=== PATIENT | male | born 1960 | race Caucasian/White ===

== ENCOUNTER → 2016-12-03 | Outpatient (CLI) | payer OTHER ==
--- NOTE | 2016-12-03 17:29 | PCVCIMAG ---
APPROVED REPORT Study performed: 12/03/2016 14:02:43 EXAM: Comprehensive 2D, Doppler, and color-flow Echocardiogram Patient Location: Echo lab Status: routine Other Information Study Quality: Fair Indications Aortic Valve Disease Murmur Cardiomegaly Aortic insuffeciency, Aortic arch aneurysm 2D Dimensions LVEF(%): 55.00 (>50%) IVSd: 11.00 (7-11mm)LVOT Diam: 32.71 (18-24mm) LVDd: 73.94 mm PWd: 11.30 (7-11mm)Ascending Ao: 38.72 (22-36mm) LVDs: 46.20 (25-40mm) Left Atrium: 30.74 (27-40mm) Aortic Root: 28.03 mm Aortic Valve AoV Peak Ammon.: 2.17 m/s AO Peak Gr.: 22.32 mmHgLVOT Max P.47 mmHg AO Mean Gr.: 9.79 mmHgLVOT Mean P.60 mmHg AO V2 Mean: 1.46 m/sLVOT Max V: 0.89 m/s AO V2 VTI: 44.91 cmLVOT Mean V: 0.60 m/s ZELALEM (VTI): 3.97 [id number] V1 VTI: 21.25 cm ZELALEM Vmax: 3.44 cm2 AI Vmax: 3.47 m/sSV (LVOT): 178.44 mL AI [place]: 1.66 m/s2 AI PHT: 608.12 ms Mitral Valve E/A Ratio: 0.9 MV Decel. Time: 306.52 ms MV E Max Ammon.: 0.67 m/s MV A Ammon.: 0.74 m/s IVRT: 134.95 ms Pulmonary Valve PV Peak Ammon.: 0.85 m/sPV Peak Gr.: 3.09 mmHg Pulmonary Vein P Vein S: 0.43 m/sP Vein A: 0.28 m/s P Vein D: 0.48 m/sP Vein A Dur.: 114.2 msec P Vein S/D Ratio: 0.90 Tricuspid Valve TV Vmax: 0.58 m/s Left Ventricle Left ventricle is severely dilated. There is normal LV segmental wall motion. Mild concentric left ventricular hypertrophy. The overall left ventricular systolic function appears normal. LVEF is 55%. The left ventricular diastolic function is normal. Right Ventricle The right ventricle is normal size. The right ventricular systolic function is normal. Atria The left atrium size is normal. The right atrium size is normal. Aortic Valve Aortic valve is possibly bicuspid. Aortic valve leaflets are mildly thickened with mildly reduced excursion. Moderate to severe aortic regurgitation Highest mean aortic valve gradient is 10mmHg. No hemodynamically significant valvular aortic stenosis. Mitral Valve The mitral valve is normal in structure. There is no mitral valve regurgitation noted. No evidence of mitral valve stenosis. Tricuspid Valve The tricuspid valve is normal in structure. There is no tricuspid valve regurgitation noted. Pulmonic Valve The pulmonary valve is normal in structure. Trace pulmonic regurgitation. Great Vessels LVOT is mildly dilated with a normal AO root at 2.8cm. The ascending aorta is normal in size. There is reverse flow seen in the ascending aorta indicative of moderate to severe aortic insuffeciency. IVC is normal in size and collapses with >50% inspiration The pulmonary artery is normal. Pericardium There is no pericardial effusion. There is no pleural effusion. <Conclusion> Left ventricle is severely dilated. Mild concentric left ventricular hypertrophy. LVEF is 55%. The left ventricular diastolic function is normal. The left atrium size is normal. The right atrium size is normal. Highest mean aortic valve gradient is 10mmHg. No hemodynamically significant valvular aortic stenosis. The mitral valve is normal in structure. There is no pericardial effusion. There is no tricuspid valve regurgitation noted.
== END | disposition home or self-care (01) ==
LOC: PCVCIMAG 13:53
PROVIDERS: ATTEND Internal Medicine Cardiovascular Disease
DX: I35.1 Nonrheumatic aortic (valve) insufficiency (principal); I37.1 Nonrheumatic pulmonary valve insufficiency; I45.2 Bifascicular block; I48.91 Unspecified atrial fibrillation; I10 Essential (primary) hypertension; E78.00 Pure hypercholesterolemia, unspecified; E78.5 Hyperlipidemia, unspecified; M16.11 Unilateral primary osteoarthritis, right hip; I71.2 Thoracic aortic aneurysm, without rupture; Z87.891 Personal history of nicotine dependence; Z86.79 Personal history of other diseases of the circulatory system; Z86.711 Personal history of pulmonary embolism; Z79.899 Other long term (current) drug therapy
CPT/HCPCS: 80061; 93306; G0463

== ENCOUNTER → 2017-08-12 | Outpatient (CLI) | payer OTHER | END | disposition home or self-care (01) | LOC: PCVCIMAG 14:39 | DX: I10 Essential (primary) hypertension (principal); I51.7 Cardiomegaly; I35.1 Nonrheumatic aortic (valve) insufficiency; I71.2 Thoracic aortic aneurysm, without rupture; E78.00 Pure hypercholesterolemia, unspecified; E66.9 Obesity, unspecified; Z98.890 Other specified postprocedural states; Z86.79 Personal history of other diseases of the circulatory system; Z87.891 Personal history of nicotine dependence; Z79.899 Other long term (current) drug therapy | CPT/HCPCS: 80061; 93005; 93017 ==

== ENCOUNTER → 2018-02-24 | Outpatient (CLI) | payer OTHER ==
--- NOTE | 2018-02-24 14:28 | PCVCIMAG ---
APPROVED REPORT Study performed: 02/24/2018 12:36:21 EXAM: Comprehensive 2D, Doppler, and color-flow Echocardiogram Patient Location: Echo lab Status: routine BSA: 2.73 Rhythm: NSR Other Information Study Quality: Adequate Technically limited study due to body habitus. Risk Factors: Cardiac Risk Factors: Hyperlipidemia, HTN Indications Aortic Valve Disease Cardiomegaly 2D Dimensions IVSd: 13.95 (7-11mm)LVOT Diam: 33.00 (18-24mm) LVDd: 54.59 mmSinus of Valsalva: 40.00 mm PWd: 14.23 (7-11mm)Ascending Ao: 40.00 (22-36mm) LVDs: 38.60 (25-40mm) Left Atrium: 37.25 (27-40mm) Aortic Root: 39.80 mm Volumes Left Atrial Volume (Systole) Single Plane 4CH: 85.46 mLSingle Plane 2CH: 57.06 mL LA ESV Index: 23.00 mL/m2 Aortic Valve AoV Peak Ammon.: 2.24 m/s AO Peak Gr.: 20.69 mmHgLVOT Max P.96 mmHg AO Mean Gr.: 10.51 mmHg AO V2 Mean: 1.53 m/sLVOT Max V: 0.99 m/s AO V2 VTI: 48.76 cm ZELALEM Vmax: 3.83 cm2 AI Vmax: 2.38 m/s AI [place]: 0.91 m/s2 AI PHT: 760.05 ms Mitral Valve E/A Ratio: 1.3 MV Decel. Time: 290.58 ms MV E Max Ammon.: 0.71 m/s MV A Ammon.: 0.56 m/s IVRT: 65.74 ms TDI E/Lateral E': 7.89E/Medial E': 7.89 Medial E' Ammon.: 0.09 m/s Lateral E' Ammon.: 0.09 m/s Pulmonary Valve PV Peak Ammon.: 0.88 m/sPV Peak Gr.: 3.07 mmHg Tricuspid Valve RAP Estimate: 7.00 mmHg Left Ventricle The left ventricle is normal size. There is normal LV segmental wall motion. Moderate concentric left ventricular hypertrophy. Left ventricular systolic function is normal. The left ventricular ejection fraction is within the normal range. LVEF is 55-60%. Grade II - pseudonormal filling dynamics. Right Ventricle Right ventricle is dilated. The right ventricular systolic function is normal. Atria The left atrium size is normal. Right atrium is dilated. Aortic Valve The aortic valve is possibly bicuspid.The aortic valve leaflets are mildly thickened. The peak aortic gradient is 21 mmHg and the mean gradient is 11 mmHg. Moderate aortic regurgitation. No hemodynamically significant aortic valve stenosis. Mitral Valve The mitral valve is normal in structure. There is no mitral valve regurgitation noted. No evidence of mitral valve stenosis. Tricuspid Valve The tricuspid valve is normal in structure. There is no tricuspid valve regurgitation noted. Pulmonic Valve The pulmonary valve is normal in structure. There is no pulmonic valvular regurgitation. Great Vessels The aortic root is normal in size. Sinus of valsalva and ascending aortic arch measure 4.0 cm. IVC is normal in size and collapses >50% with inspiration. Pericardium There is no pericardial effusion. <Conclusion> The left ventricle is normal size. Moderate concentric left ventricular hypertrophy. LVEF is 55-60%. Grade II - pseudonormal filling dynamics. Right ventricle is dilated. The left atrium size is normal. Right atrium is dilated. Right atrium is dilated. The aortic valve is possibly bicuspid.The aortic valve leaflets are mildly thickened. The peak aortic gradient is 21 mmHg and the mean gradient is 11 mmHg. Moderate aortic regurgitation. There is no mitral valve regurgitation noted. There is no tricuspid valve regurgitation noted. The aortic root is normal in size. There is no pericardial effusion.
== END | disposition home or self-care (01) ==
LOC: PCVCIMAG 12:29
PROVIDERS: ATTEND Internal Medicine Cardiovascular Disease
DX: I06.1 Rheumatic aortic insufficiency (principal); I10 Essential (primary) hypertension
CPT/HCPCS: 93306